=== PATIENT | female | born 1940 | race Caucasian/White ===

== ENCOUNTER 2016-11-04 10:20 | Day surgery (SDC) | payer MEDICARE, BC ==
[~2016-11-04 10:20] MED LIST: FENTANYL 250 MCG/5 ML AMP IV PRN; LACTATED RINGERS 1,000 ML IV SCH; MIDAZOLAM HCL 5 MG/5 ML VIAL IV PRN
[2016-11-04] MEDS ORDERED: IV START KIT ONE (10:27)
[2016-11-04] MEDS ORDERED: LIDOCAINE Viscous 2% 15 ML UDCUP PO PRN (10:51)
--- NOTE | 2016-11-08 11:02 | SURGPATH ---
[facility] [address] [place] [id number] Patient Name: ROSALBA RMOERO MR#: [id number] : 1940 Gender: F Specimen #: [id number] Collected: 11/04/2016 Received: 11/07/2016 Reported: 11/08/2016 Submitting Phys: ANNI VALENTINE Copy To Phys: [facility] Clinical History / Pre-Operative Diagnosis: RECTAL BLEEDING; SURVEILLANCE; FAMILY HISTORY OF COLON POLYPS Specimen Source / Surgical Procedure Performed: #1-SPLENIC FLEXURE POLYP; #2-HEPATIC FLEXURE POLYP Interpretation: 1. SPLENIC FLEXURE POLYP, BIOPSY: - TUBULAR ADENOMA 2. HEPATIC FLEXURE POLYP, BIOPSY: - NORMAL MUCOSA Electronically Signed Out Bin Schwartz M.D. Gross Description: #1 The specimen is received in a formalin filled container labeled with the patient's name and "splenic flexure polyp". A polypoid lennon biopsy is 0.6 x 0.5 x 0.4 cm. Bisected. Totally embedded in cassette #1. #2 The specimen is received in a formalin filled container labeled with the patient's name and "hepatic flexure polyp". A single lennon biopsy is 0.4 cm. Totally embedded in cassette #2. Hawk Leyva PWinnie Microscopic Description: Microscopic performed. 1: 08098 2: 48488 D12.3
== END 2016-11-04 12:20 | disposition home or self-care (01) ==
LOC: SDC 10:20
PROVIDERS: ATTEND Internal Medicine Gastroenterology
PROC: 0DBL8ZX Excision of Transverse Colon, Via Natural or Artificial Opening Endoscopic, Diagnostic (ICD-10-PCS; principal; 2016-11-04)
DX: Z12.11 Encounter for screening for malignant neoplasm of colon (principal); D12.3 Benign neoplasm of transverse colon; K64.1 Second degree hemorrhoids; K57.30 Diverticulosis of large intestine without perforation or abscess without bleeding; Z83.71 Family history of colonic polyps; I10 Essential (primary) hypertension; Z87.891 Personal history of nicotine dependence; Z79.82 Long term (current) use of aspirin
CPT/HCPCS: 45385; J3010; J2250; A9270; J7120